=== PATIENT | male | born 1940 | race Caucasian/White ===

== ENCOUNTER 2017-04-29 07:45 | Day surgery (SDC) | payer MEDICARE, OTHER ==
[~2017-04-29 07:45] MED LIST: Sodium Chloride 0.9% 10 ML Syringe FLUSH PRN
[2017-04-29] MEDS ORDERED: Propofol 200 MG/20 ML SDV IV ONE (09:15)
[2017-04-29] MEDS ORDERED: Lidocaine 1% 20 ML MDV INJECT ONE (09:15)
[2017-04-29 10:33] VITALS: BP 123/76
--- NOTE | 2017-04-30 09:10 | OR ---
DATE OF OPERATION: 04/29/2017 SURGEON: Juan M Camilo MD PREOPERATIVE DIAGNOSIS: Cataract, left eye. POSTOPERATIVE DIAGNOSIS: Cataract, left eye. OPERATION PERFORMED: Phacoemulsification of cataract left eye with placement of an Stewart, model ZCB00, 20.5 diopter, foldable, posterior chamber intraocular lens. LEAD PROJECT ENGINEER: None. DESCRIPTION OF PROCEDURE: Peribulbar anesthetic was performed using a mixture of 2% lidocaine with W[place]ase. The patient was prepped and draped in the usual fashion. A 3 mm fornix based conjunctival flap was performed at the 10 o'clock position. Hemostasis was obtained using diathermy, and a 2.8 mm grooved near clear corneal incision was then made. A stab incision was made into the anterior chamber at the 12 o'clock position and a second stab wound incision was made underlying the grooved near clear corneal incision. Viscoat was instilled into the anterior chamber, and a continuous tear capsulotomy was performed. Hydrodissection was accomplished with balanced salt solution, and the nucleus was removed in a divide and conquer fashion. The remaining cortical material was removed with the irrigation and aspiration unit. Viscoat was instilled into the anterior chamber, and an Stewart, model ZCB00, 20.5 diopter, foldable, posterior chamber intraocular lens was placed into the capsular bag, the haptics being positioned at the 1 and 7 o'clock positions. The residual Viscoat was removed from the anterior chamber and the anterior chamber reformed with balanced salt solution. The wound was checked and noted to be watertight. The conjunctiva was secured in its original position with diathermy. Alphagan and Maxitrol Ointment were then placed into the patient's eye. The patient tolerated the procedure well and it was without complication. Elapsed phacoemulsification time was 21.2 seconds. Postoperative instructions as related to activities as well as medications were reviewed with the patient. The patient was instructed to return to see me on the day following surgery for the first postoperative check. The patient was also instructed to contact me prior to that time if he were to have any problems. /[id number] DEG/MODL CC: CHATO MEJIA MD [facility]
== END 2017-04-29 10:40 ==
LOC: FB.SDS 07:45
PROVIDERS: ATTEND Ophthalmology
DX: H26.9 Unspecified cataract (principal); I25.810 Atherosclerosis of coronary artery bypass graft(s) without angina pectoris; E78.5 Hyperlipidemia, unspecified; Z88.1 Allergy status to other antibiotic agents; Z88.8 Allergy status to other drugs, medicaments and biological substances; Z90.49 Acquired absence of other specified parts of digestive tract
CPT/HCPCS: 00142; 66984; A4217; C1780; J2704; J7050

== ENCOUNTER 2017-05-27 08:29 | Day surgery (SDC) | payer MEDICARE, OTHER ==
[2017-05-27] MEDS ORDERED: Sodium Chloride 0.9% 10 ML Syringe FLUSH PRN (08:30)
[2017-05-27] MEDS ORDERED: Propofol 200 MG/20 ML SDV IV ONE (10:45)
[2017-05-27 12:37] VITALS: BP 129/78
--- NOTE | 2017-05-28 07:32 | OR ---
DATE OF OPERATION: 05/27/2017 SURGEON: Juan M Camilo MD PREOPERATIVE DIAGNOSIS: Cataract right eye. POSTOPERATIVE DIAGNOSIS: Cataract right eye. OPERATION PERFORMED: Phacoemulsification of cataract, right eye, with placement of an Stewart, model ZCB00, 20.5 diopter, foldable, posterior chamber intraocular lens. CELLO TEACHER: None. DESCRIPTION OF PROCEDURE: Peribulbar anesthetic was performed using a mixture of 2% lidocaine with W[place]ase. The patient was prepped and draped in the usual fashion. A 3 mm fornix based conjunctival flap was performed at the 10 o'clock position. Hemostasis was obtained using diathermy, and a 2.8 mm grooved near clear corneal incision was then made. A stab incision was made into the anterior chamber at the 12 o'clock position and a second stab wound incision was made underlying the grooved near clear corneal incision. Viscoat was instilled into the anterior chamber, and a continuous tear capsulotomy was performed. Hydrodissection was accomplished with balanced salt solution, and the nucleus was removed in a divide and conquer fashion. The remaining cortical material was removed with the irrigation and aspiration unit. Viscoat was instilled into the anterior chamber, and Stewart, model ZCB00, 20.5 Diopter, foldable, posterior chamber intraocular lens was placed into the capsular bag, the haptics being positioned at the 1 and 7 o'clock positions. The residual Viscoat was removed from the anterior chamber and the anterior chamber reformed with balanced salt solution. The wound was checked and noted to be watertight. The conjunctiva was secured in its original position with diathermy. Alphagan and Maxitrol Ointment were then placed into the patient's eye. The patient tolerated the procedure well and it was without complication. Elapsed phacoemulsification time was 21.6 seconds. Postoperative instructions as related to activities, as well as medications, were reviewed with the patient. The patient was instructed to return to see me on the day following surgery for the first postoperative check. The patient was also instructed to contact me prior to that time if the patient were to have any problems. /[id number] DEG/MODL CC: CHATO MEJIA MD [facility]
== END 2017-05-27 12:08 | disposition home or self-care (01) ==
LOC: FB.SDS 08:29
PROVIDERS: ATTEND Ophthalmology
DX: H26.9 Unspecified cataract (principal); E78.5 Hyperlipidemia, unspecified; Z88.1 Allergy status to other antibiotic agents; Z88.8 Allergy status to other drugs, medicaments and biological substances; Z95.1 Presence of aortocoronary bypass graft; Z90.49 Acquired absence of other specified parts of digestive tract; Z79.899 Other long term (current) drug therapy
CPT/HCPCS: 00142; 66984; A4217; C1780; J2704; J7050

== ENCOUNTER 2018-12-28 16:00 | Emergency (ER) | payer MEDICARE, OTHER ==
[2018-12-28] MEDS ORDERED: Sodium Chloride 0.9% 10 ML Syringe FLUSH PRN (16:09)
--- NOTE | 2018-12-28 16:14 | EDM.PDOC ---
ED HPI GENERAL MEDICAL PROBLEM - General Stated Complaint: unable to ambulate Time Seen by Provider: 12/28/18 16:00 Source of Information: Reports: Patient, Family History Limitations: Reports: No Limitations - History of Present Illness INITIAL COMMENTS - FREE TEXT/NARRATIVE: 78 y.o.w.m with a H/O CAD, went initially to the clinic because of sudden onset of weakness after he ate some left overs, took a nap and woke up form his nap. At he Clinic, pt's SBP was in the 60's. Pt came with his by PC to the ED. His BP was SBP was 135, Pt was unable to stand up because of weakness. Pt was orthostatic. He did not c/o CP or SOB. Just weakness. All family members ate the same food, but nobody else got sick. Pt noticed a skin lesion at his right flank, which is draining bloodish secretions for a fes days. Pt denied a bug/ insect bite. Pt felt nauseated as well. Pt is a very active person and plays golf. No other acute med issues. BP 134/60 Pulse 92 RR 18 Pulse ox 95% on RA Temp 36.9 Onset Date: 12/28/18 Onset Time: 14:00 Duration: Hour(s):, Intermittent Location: Reports: Generalized Quality: Reports: Other (weak, nauseated) Improves with: Reports: Rest Worsens with: Reports: Movement Context: Reports: Other Associated Symptoms: Reports: Loss of Appetite - Related Data Allergies Allergy/AdvReac Type Severity Reaction Status Date / Time amoxicillin [From Augmentin] Allergy Nausea Verified 12/28/18 17:14 clavulanic acid Allergy Nausea Verified 12/28/18 17:14 [From Augmentin] Home Meds: Home Meds Gluc 2KCl/Chondr/Nedra Hy/Hy Ac [Glucosamine & Chondroitin Cap] 1 each PO DAILY 04/29/17 [History] Multivitamin with Minerals [Multiple Vitamin] 1 tab PO DAILY 04/29/17 [History] [place]-3/DHA/Epa/Fish Oil [Fish Oil 1,000 mg Softgel] 1 each PO DAILY 04/29/17 [ History] atorvaSTATin [Lipitor] 40 mg PO BEDTIME 04/29/17 [History] Aspirin [Halfprin] 81 mg PO DAILY 12/28/18 [History] Past Medical History HEENT History: Reports: Cataract Cardiovascular History: Reports: CAD, High Cholesterol Gastrointestinal History: Reports: Cholelithiasis - Past Surgical History HEENT Surgical History: Reports: Cataract Surgery Cardiovascular Surgical History: Reports: Coronary Artery Bypass Other Cardiovascular Surgeries/Procedures: 4 vessel CABG GI Surgical History: Reports: Cholecystectomy, Colonoscopy Social & Family History - Caffeine Use Caffeine Use: Reports: Soda, Tea ED ROS GENERAL - Review of Systems Review Of Systems: See Below Constitutional: Reports: Weakness, Decreased Appetite HEENT: Reports: No Symptoms Respiratory: Reports: No Symptoms Cardiovascular: Reports: No Symptoms Endocrine: Reports: No Symptoms GI/Abdominal: Reports: No Symptoms : Reports: No Symptoms Musculoskeletal: Reports: No Symptoms Skin: Reports: No Symptoms Neurological: Reports: No Symptoms Psychiatric: Reports: No Symptoms Hematologic/Lymphatic: Reports: No Symptoms Immunologic: Reports: No Symptoms ED EXAM, GI/ABD - Physical Exam Exam: See Below Exam Limited By: No Limitations General Appearance: Alert, WD/WN, Mild Distress, Moderate Distress Eyes: Bilateral: Normal Appearance Ears: Normal External Exam, Normal Canal Nose: Normal Inspection, Normal Mucosa Throat/Mouth: Normal Inspection, Normal Lips, Normal Voice, No Airway Compromise , Other (decreased moisture of mucosal membranes) Head: Atraumatic, Normocephalic Neck: Normal Inspection, Supple, Non-Tender, Full Range of Motion Respiratory/Chest: No Respiratory Distress, Lungs Clear, Normal Breath Sounds, No Accessory Muscle Use, Chest Non-Tender Cardiovascular: Normal Peripheral Pulses, Regular Rate, Rhythm, No Edema, No Gallop GI/Abdominal Exam: Normal Bowel Sounds, Soft, Non-Tender, No Organomegaly, No Abnormal Bruit, No Mass, Pelvis Stable (Male) Exam: Deferred Rectal (Males) Exam: Deferred Back Exam: Normal Inspection, Full Range of Motion Extremities: Normal Inspection, Normal Range of Motion, Non-Tender, Normal Capillary Refill Neurological: Alert, Oriented, CN II-XII Intact, Normal Cognition, Abnormal Gait (too weak to ambulate) Psychiatric: Normal Affect, Normal Mood Skin Exam: Warm, Dry, Normal Color, Wound/Incision (Pustle like lesion right upper/lateral abd. wall 1 cmX1 cm), Other Lymphatic: No Adenopathy EKG INTERPRETATION EKG Date: 12/28/18 Time: 18:00 Rhythm: NSR Rate (Beats/Min): 82 Mccoll: Normal P-Wave: Present QRS: Normal ST-T: Normal QT: Normal Comparison: NA - No Prior EKG Course - Vital Signs Text/Narrative:: 78 y.o.w.m with a H/O CAD, went initially to the clinic because of sudden onset of weakness after he ate some left overs, took a nap and woke up form his nap. At he Clinic, pt's SBP was in the 60's. Pt came with his by PC to the ED. His BP was SBP was 135, Pt was unable to stand up because of weakness. Pt was orthostatic. He did not c/o CP or SOB. Just weakness. All family members ate the same food, but nobody else got sick. Pt noticed a skin lesion at his right flank, which is draining bloodish secretions for a fes days. Pt denied a bug/ insect bite. Pt felt nauseated as well. Pt is a very active person and plays golf. No other acute med issues. BP 134/60 Pulse 92 RR 18 Pulse ox 95% on RA Temp 36.9 PE: WNWD W M too weak to stand up Imaging: Not indicated Labs: CBC showed a WBC 12.4 Neutros 92 % Lactic acid 2.3 K 3.4 Cr 1.4 Trop nl ESR 10, gram stain and Cx from the abd. skin lesion is pending Pustule like lesion right upper/lateral abd. wall 1 cmX1 cm Impression: Dehydration, Hypokalemia, Viral syndrome, Pustule like lesion right upper/lateral abd 6.02 pm Consultation: Dr. Coats, Hospitalist: If signs of sepsis, transfer pt to [place] 6.09 pm Consultation: , Hospitalist, [facility]: Hydrate pt well, RSV and Influenza test. If no improvement, and pt unable to ambulate, call back Tx: NS, Potassium Reexam: Pt felt better, was ambulating well to the bathroom and requested to be D/C'd with family Plan: D/C with instructions Last Recorded V/S: Last Vital Signs Temp 37.3 C 12/28/18 19:00 Pulse 83 12/28/18 17:40 Resp 18 12/28/18 17:40 BP 129/48 L 12/28/18 17:40 Pulse Ox 94 L 12/28/18 17:40 Orthostatic Blood Pressure [ 134/111 Standing] Orthostatic Blood Pressure [ 131/56 Sitting] Orthostatic Blood Pressure [ 119/50 Supine] - Orders/Labs/Meds Orders: Active Orders 24 hr Category Date Time Status EKG Documentation Completion [RC] ASDIRECTED Care 12/28/18 17:44 Active Orthostatic Vital Signs [RC] ASDIRECTED Care 12/28/18 16:50 Active CULTURE BLOOD [BC] Urgent Lab 12/28/18 16:20 Received CULTURE BLOOD [BC] Urgent Lab 12/28/18 18:50 Received CULTURE ROUTINE + SMEAR [RM] Stat Lab 12/28/18 18:49 Results Blood Culture x2 Reflex Set [OM.PC] Urgent Oth 12/28/18 18:39 Ordered Peripheral IV Insertion Adult [OM.PC] Routine Oth 12/28/18 16:09 Ordered EKG 12 Lead [EK] Routine Ther 12/28/18 17:44 Ordered Labs: Laboratory Tests 12/28/18 12/28/18 12/28/18 Range/Units 16:20 16:20 16:20 WBC 12.9 H (4.5-12.0) X10-3/uL RBC 4.44 (4.30-5.75) x10(6)uL Hgb 13.5 (13.5-17.8) g/dL Hct 40.0 (30.0-51.3) % MCV 90.0 (80-96) fL MCH 30.4 (27.7-33.6) pg MCHC 33.8 (32.2-35.4) g/dL RDW 13.2 (11.5-15.5) % Plt Count 176 (125-369) X10(3)uL MPV 8.5 (7.4-10.4) fL Add Manual Diff Yes Neutrophils % (Manual) 92 H (46-82) % Band Neutrophils % 2 (0-6) % Lymphocytes % (Manual) 2 L (13-37) % Monocytes % (Manual) 2 L (4-12) % Eosinophils % (Manual) 1 (0-5) % Basophils % (Manual) 1 (0-2) % ESR (0-15) mm/hr PT 9.9 (8.7-11.1) INR 1.02 (0.89-1.13) Sodium 140 (135-145) mmol/L Potassium 3.4 L (3.5-5.3) mmol/L Chloride 103 (100-110) mmol/L Carbon Dioxide 26 (21-32) mmol/L BUN 19 H (7-18) mg/dL Creatinine 1.4 H (0.70-1.30) mg/dL Est Cr Clr Drug Dosing TNP Estimated GFR (MDRD) 49 L (>60) BUN/Creatinine Ratio 13.6 (9-20) Glucose 102 (80-116) mg/dL Lactic Acid (0.4-2.2) mmol/L Calcium 8.7 (8.6-10.2) mg/dL Magnesium (1.8-2.5) mg/dL Total Bilirubin 0.6 (0.1-1.3) mg/dL Direct Bilirubin 0.15 (0.10-0.20) mg/dL AST 22 (5-25) IU/L ALT 39 H (12-36) U/L Alkaline Phosphatase 69 (56-112) IU/L Troponin I (<0.017-0.056) ng/mL Total Protein 6.3 (6.0-8.0) g/dL Albumin 3.6 (3.2-4.6) g/dL Amylase 72 (25-115) U/L Urine Color (YELLOW) Urine Appearance (CLEAR) Urine pH (5.0-6.5) Ur Specific [place] (1.010-1.025) Urine Protein (NEGATIVE) mg/dL Urine Glucose (UA) (NORMAL) mg/dL Urine Ketones (NEGATIVE) mg/dL Urine Occult Blood (NEGATIVE) Urine Nitrite (NEGATIVE) Urine Bilirubin (NEGATIVE) Urine Urobilinogen (NEGATIVE) mg/dL Ur Leukocyte Esterase (NEGATIVE) Urine RBC (0-5) Urine WBC (0-5) Ur Squamous Epith Cells (NS,R,O) Urine Bacteria (NS) 12/28/18 12/28/18 12/28/18 Range/Units 16:20 16:20 16:20 WBC (4.5-12.0) X10-3/uL RBC (4.30-5.75) x10(6)uL Hgb (13.5-17.8) g/dL Hct (30.0-51.3) % MCV (80-96) fL MCH (27.7-33.6) pg MCHC (32.2-35.4) g/dL RDW (11.5-15.5) % Plt Count (125-369) X10(3)uL MPV (7.4-10.4) fL Add Manual Diff Neutrophils % (Manual) (46-82) % Band Neutrophils % (0-6) % Lymphocytes % (Manual) (13-37) % Monocytes % (Manual) (4-12) % Eosinophils % (Manual) (0-5) % Basophils % (Manual) (0-2) % ESR (0-15) mm/hr PT (8.7-11.1) INR (0.89-1.13) Sodium (135-145) mmol/L Potassium (3.5-5.3) mmol/L Chloride (100-110) mmol/L Carbon Dioxide (21-32) mmol/L BUN (7-18) mg/dL Creatinine (0.70-1.30) mg/dL Est Cr Clr Drug Dosing Estimated GFR (MDRD) (>60) BUN/Creatinine Ratio (9-20) Glucose (80-116) mg/dL Lactic Acid 2.3 H (0.4-2.2) mmol/L Calcium (8.6-10.2) mg/dL Magnesium 1.9 (1.8-2.5) mg/dL Total Bilirubin (0.1-1.3) mg/dL Direct Bilirubin (0.10-0.20) mg/dL AST (5-25) IU/L ALT (12-36) U/L Alkaline Phosphatase (56-112) IU/L Troponin I < 0.017 L (<0.017-0.056) ng/mL Total Protein (6.0-8.0) g/dL Albumin (3.2-4.6) g/dL Amylase (25-115) U/L Urine Color (YELLOW) Urine Appearance (CLEAR) Urine pH (5.0-6.5) Ur Specific [place] (1.010-1.025) Urine Protein (NEGATIVE) mg/dL Urine Glucose (UA) (NORMAL) mg/dL Urine Ketones (NEGATIVE) mg/dL Urine Occult Blood (NEGATIVE) Urine Nitrite (NEGATIVE) Urine Bilirubin (NEGATIVE) Urine Urobilinogen (NEGATIVE) mg/dL Ur Leukocyte Esterase (NEGATIVE) Urine RBC (0-5) Urine WBC (0-5) Ur Squamous Epith Cells (NS,R,O) Urine Bacteria (NS) 12/28/18 12/28/18 Range/Units 16:20 17:36 WBC (4.5-12.0) X10-3/uL RBC (4.30-5.75) x10(6)uL Hgb (13.5-17.8) g/dL Hct (30.0-51.3) % MCV (80-96) fL MCH (27.7-33.6) pg MCHC (32.2-35.4) g/dL RDW (11.5-15.5) % Plt Count (125-369) X10(3)uL MPV (7.4-10.4) fL Add Manual Diff Neutrophils % (Manual) (46-82) % Band Neutrophils % (0-6) % Lymphocytes % (Manual) (13-37) % Monocytes % (Manual) (4-12) % Eosinophils % (Manual) (0-5) % Basophils % (Manual) (0-2) % ESR 10 (0-15) mm/hr PT (8.7-11.1) INR (0.89-1.13) Sodium (135-145) mmol/L Potassium (3.5-5.3) mmol/L Chloride (100-110) mmol/L Carbon Dioxide (21-32) mmol/L BUN (7-18) mg/dL Creatinine (0.70-1.30) mg/dL Est Cr Clr Drug Dosing Estimated GFR (MDRD) (>60) BUN/Creatinine Ratio (9-20) Glucose (80-116) mg/dL Lactic Acid (0.4-2.2) mmol/L Calcium (8.6-10.2) mg/dL Magnesium (1.8-2.5) mg/dL Total Bilirubin (0.1-1.3) mg/dL Direct Bilirubin (0.10-0.20) mg/dL AST (5-25) IU/L ALT (12-36) U/L Alkaline Phosphatase (56-112) IU/L Troponin I (<0.017-0.056) ng/mL Total Protein (6.0-8.0) g/dL Albumin (3.2-4.6) g/dL Amylase (25-115) U/L Urine Color Yellow (YELLOW) Urine Appearance Clear (CLEAR) Urine pH 6.5 (5.0-6.5) Ur Specific [place] 1.010 (1.010-1.025) Urine Protein Negative (NEGATIVE) mg/dL Urine Glucose (UA) Normal (NORMAL) mg/dL Urine Ketones 15 H (NEGATIVE) mg/dL Urine Occult Blood Negative (NEGATIVE) Urine Nitrite Negative (NEGATIVE) Urine Bilirubin Negative (NEGATIVE) Urine Urobilinogen Normal (NEGATIVE) mg/dL Ur Leukocyte Esterase Negative (NEGATIVE) Urine RBC 0-5 (0-5) Urine WBC 0-5 (0-5) Ur Squamous Epith Cells Few H (NS,R,O) Urine Bacteria Few H (NS) Meds: Medications Discontinued Medications Generic Name Dose Route Start Last Admin Trade Name Freq PRN Reason Stop Dose Admin Sodium Chloride 500 mls @ 999 mls/hr 12/28/18 16:22 12/28/18 16:32 Normal Saline IV 12/28/18 16:52 999 mls/hr .BOLUS ONE Administration Sodium Chloride 1,000 mls @ 125 mls/hr 12/28/18 17:10 12/28/18 17:03 Normal Saline IV 12/29/18 01:09 125 mls/hr ASDIRECTED STA Administration Sodium Chloride 1,000 mls @ 500 mls/hr 12/28/18 19:10 12/28/18 19:38 Normal Saline IV 12/28/18 21:09 500 mls/hr .BOLUS ONE Administration Ketorolac Tromethamine 15 mg 12/28/18 19:39 12/28/18 19:52 Toradol IVPUSH 12/28/18 19:40 15 mg ONETIME ONE Administration Ondansetron HCl 8 mg 12/28/18 16:22 12/28/18 16:32 Zofran IVPUSH 12/28/18 16:23 8 mg ONETIME STA Administration Pantoprazole Sodium 40 mg 12/28/18 16:22 12/28/18 16:41 Protonix Iv IVPUSH 12/28/18 16:23 40 mg ONETIME ONE Administration Potassium Chloride 40 meq 12/28/18 21:24 12/28/18 21:30 Klor-Con M20 PO 12/28/18 21:25 40 meq ONETIME ONE Administration Sodium Chloride 10 ml 12/28/18 16:09 12/28/18 17:53 Saline Flush FLUSH 10 ml ASDIRECTED PRN Administration Keep Vein Open Departure - Departure Time of Disposition: 21:23 Disposition: Home, Self-Care 01 Condition: Good Clinical Impression: Dehydration symptoms, Hypokalemia - Discharge Information Instructions: Hypokalemia, Dehydration, Adult, [id number] Referrals: Yuriy Coats MD [Primary Care Provider] - Forms: ED Department Discharge Additional Instructions: Please increase water intake, please f/u with your PMD in 3 days, please come back if your symptoms get worse acutely - My Orders Last 24 Hours: My Active Orders 12/28/18 16:09 Peripheral IV Insertion Adult [OM.PC] Routine 12/28/18 16:20 CULTURE BLOOD [BC] Urgent 12/28/18 16:50 Orthostatic Vital Signs [RC] ASDIRECTED 12/28/18 17:44 EKG Documentation Completion [RC] ASDIRECTED EKG 12 Lead [EK] Routine 12/28/18 18:39 Blood Culture x2 Reflex Set [OM.PC] Urgent 12/28/18 18:49 CULTURE ROUTINE + SMEAR [RM] Stat 12/28/18 18:50 CULTURE BLOOD [BC] Urgent - Assessment/Plan Last 24 Hours: My Active Orders 12/28/18 16:09 Peripheral IV Insertion Adult [OM.PC] Routine 12/28/18 16:20 CULTURE BLOOD [BC] Urgent 12/28/18 16:50 Orthostatic Vital Signs [RC] ASDIRECTED 12/28/18 17:44 EKG Documentation Completion [RC] ASDIRECTED EKG 12 Lead [EK] Routine 12/28/18 18:39 Blood Culture x2 Reflex Set [OM.PC] Urgent 12/28/18 18:49 CULTURE ROUTINE + SMEAR [RM] Stat 12/28/18 18:50 CULTURE BLOOD [BC] Urgent
[2018-12-28] MEDS ORDERED: Pantoprazole 40 MG Vial IVPUSH ONE (16:22)
[2018-12-28] MEDS ORDERED: Sodium Chloride 0.9% 500 ML IV ONE (16:22)
[2018-12-28] MEDS ORDERED: Ondansetron 4 MG/2 ML SDV IVPUSH STA (16:22)
[2018-12-28] MEDS ORDERED: Sodium Chloride 0.9% 1,000 ML IV STA (17:10)
[2018-12-28 18:18] VITALS: BP 129/48
[2018-12-28] MEDS ORDERED: Sodium Chloride 0.9% 1,000 ML IV ONE (19:10)
[2018-12-28] MEDS ORDERED: Ketorolac 30 MG/ML SDV IVPUSH ONE (19:39)
[2018-12-28] MEDS ORDERED: Potassium Chloride 20 MEQ Tab.ER PO ONE (21:24)
== END 2018-12-28 21:40 | disposition home or self-care (01) ==
LOC: FB.ED 16:00
DX: E87.6 Hypokalemia (principal); E86.0 Dehydration; B34.9 Viral infection, unspecified; Z88.1 Allergy status to other antibiotic agents
CPT/HCPCS: 36415; 80048; 80076; 81001; 82150; 82550; 83605; 83735; 84484; 85025; 85610; 85651; 87040; 87070; 87205; 87804; 93005; 96361; 96374; 96375; 99284; A9270; C9113; J1885; J2405; J7030; J7040